=== PATIENT | female | born 1955 | race Caucasian/White ===

== ENCOUNTER 2024-01-31 05:31 | Day surgery (SDC) | payer BC ==
[2024-01-23 13:57] LABS: BASOPHILS % (AUTO) 0.5 % (0-1); EOSINOPHILS # (AUTO) 0.5 X10'3 (0-0.9); LYMPHOCYTES # (AUTO) 2.2 X10'3 (1.1-4.8); LYMPHOCYTES % (AUTO) 31.1 % (21-51); MEAN CORPUSCULAR HEMOGLOBIN 31.6 PG (27.0-31.0); MEAN CORPUSCULAR HGB CONC 33.1 g/dL (33.0-36.5); MEAN CORPUSCULAR VOLUME 95.3 FL (78-98); MEAN PLATELET VOLUME 9.9 FL (7.4-10.4); MONOCYTES # (AUTO) 0.4 X10'3 (0-0.9); MONOCYTES % (AUTO) 6.3 % (2-12); NEUTROPHILS # (AUTO) 3.9 X10'3 (1.8-7.7); NEUTROPHILS % (AUTO) 55.1 % (42-75); PRE OP HEMATOCRIT 43.9 % (35.0-45.0); PRE OP HEMOGLOBIN 14.5 g/dL (12.0-16.0); PRE OP PLATELET COUNT 206 X10'3 (140-440); RED CELL DISTRIBUTION WIDTH 14.4 % (11.5-14.5)
[2024-01-23 14:13] LABS: ALBUMIN 4.3 G/DL (3.4-5.0); ALBUMIN/GLOBULIN RATIO 1.2 (1.1-1.5); ALKALINE PHOSPHATASE 86 IU/L (46-116); BLOOD UREA NITROGEN 6 MG/DL (7-18); BUN/CREATININE RATIO 8.3 (10.0-20.0); CALCIUM 9.3 MG/DL (8.5-10.1); CHLORIDE 108 MMOL/L (99-107); CREATININE 0.72 MG/DL (0.40-0.90); PRE OP ALT 25 U/L (30-65); PRE OP ANION GAP 4 (8-16); PRE OP AST 18 U/L (10-37); PRE OP BILIRUB, TOTAL 0.6 MG/DL (0.0-1.0); PRE OP GLUCOSE 99 MG/DL (70-104); PRE OP SODIUM 140 MMOL/L (135-145); TOTAL PROTEIN 7.9 G/DL (6.4-8.2); eGFR 81 ML/MIN
[~2024-01-31] VITALS: Ht 160 cm; Wt 87.7 kg
[2024-01-31] VITALS (8 sets, daily range): BP systolic 117–144; BP diastolic 61–80; PULSE 68–82; RESP 10–26; TEMP 97.9; O2SAT 94–99
[~2024-01-31 05:31] MED LIST: ROSU20TA73 PO
[2024-01-31] MEDS: famotidine 20mg tablet PO ONE (05:55)
[2024-01-31] MEDS: ringers solution, lacted 1,000 ML IV SCH (05:57)
[2024-01-31] MEDS: cefazolin 2gm/D5W 100mL 100 ML IV ONE (05:58)
[2024-01-31] MEDS ORDERED: BUPIVAcaine 2.5mg/ml inj 50ml vial (contains preservative) ONE (07:06)
[2024-01-31] MEDS ORDERED: propofol inj 20 ML IV ONE (07:17)
[2024-01-31] MEDS ORDERED: fentaNYL/PF 50MCG/1 ML 2ML syringe ONE (07:18)
[2024-01-31] MEDS ORDERED: LIDOcaine 2% (20mg/ml) 5ml vial ONE (07:19)
[2024-01-31] MEDS ORDERED: dexamethasone sod phosphate 4mg/ml inj. ONE (07:29)
[2024-01-31] MEDS ORDERED: ondansetron/PF 4mg/2ml inj ONE (07:29)
[2024-01-31] MEDS ORDERED: desflurane 240ml liquid inh. IH ONE (07:30)
[2024-01-31] MEDS ORDERED: meperidine/PF 25mg/ml syringe ONE (08:06)
[2024-01-31] MEDS: BUPIVAcaine 0.25% w/Epi /PF 30ml vial ONE (09:13)
[2024-01-31] MEDS: LIDOcaine 1% 30ml preserv. free vial ONE (09:14)
== END 2024-01-31 09:20 | disposition home or self-care (01) ==
LOC: PAS 05:31
PROVIDERS: ATTEND Surgery
DX: S21.002A Unspecified open wound of left breast, initial encounter (principal); R92.8 Other abnormal and inconclusive findings on diagnostic imaging of breast; N60.12 Diffuse cystic mastopathy of left breast; N60.11 Diffuse cystic mastopathy of right breast; E78.5 Hyperlipidemia, unspecified; J43.9 Emphysema, unspecified; Z87.891 Personal history of nicotine dependence; Z79.899 Other long term (current) drug therapy; Z98.890 Other specified postprocedural states; X58.XXXA Exposure to other specified factors, initial encounter; Y93.89 Activity, other specified; Y92.89 Other specified places as the place of occurrence of the external cause; Y99.8 Other external cause status
CPT/HCPCS: 19120; 36415; 80053; 82948; 85025; 93005; J0690; J1100; J2175; J2405; J2704; J3010; J3490; J7030; J7120; Z7506; Z7512; 88305; A4215; A4618; A6449; A7000; S0020

== ENCOUNTER 2025-02-01 15:44 | Emergency (ER) | payer BC ==
[~2025-02-01] VITALS: Ht 157.5 cm; Wt 85.0 kg
[~2025-02-01 15:44] MED LIST changes: -ROSU20TA73 PO; +ROSU20TA98 PO
--- NOTE | 2025-02-01 16:26 | RADIOLOGY REPORT ---
CLINICAL INDICATION: A branch fell on arm, laceration to arm just above the elbow and forearm. TECHNIQUE: 2 views right forearm DI FOREARM,INCL.ONE JOINT Comparison: None FINDINGS/IMPRESSION: : There is no evidence of acute fracture or dislocation. Soft tissues are unremarkable.
[2025-02-01] MEDS ORDERED: LIDOcaine 1% W/epiNEPHrine 1:200,000 10ml vial IJ STA (16:33)
[2025-02-01] MEDS ORDERED: LIDOcaine 1% W/epiNEPHrine 1:100,000 20ml vial IJ STA (16:37)
[2025-02-01] MEDS: LIDOcaine 1% 30ml preserv. free vial IJ STA (16:56)
--- NOTE | 2025-02-01 18:21 | RADIOLOGY REPORT ---
CLINICAL INDICATION: tree fell on arm and hand RIGHT TECHNIQUE: 3 radiographic views of the right hand were obtained. Comparison: DI FOREARM,INCL.ONE JOINT on DOS: 02/01/25 FINDINGS/IMPRESSION: There is no evidence of acute fracture or dislocation. Mild degenerative changes of the hand. The alignment is anatomical. There is no radiopaque foreign body. Skin defect over the dorsum of the metacarpals. Correlate for P ossible wound. Mild soft tissue edema of the proximal dorsal metacarpal/wrist.
[2025-02-01] MEDS ORDERED: CEPH-585 PO (18:37)
--- NOTE | 2025-02-01 18:37 | Physician Documentation ---
History of Present Illness ~ Chief Complaint: Laceration Stated Complaint: ARM LACERATION Time Seen by MD: 16:01 HPI Patient is a 69-year-old female that presents to the emergency department for evaluation of injuries and laceration sustained today after a tree branch fell o nto her arm while she was sitting in her yd. Patient reports she is able to move fingers her arm no reduced range of motion she was not hit in the head by the tree branch just in the biceps and forearm into the dorsal aspect of her right hand. Patient denies any other complaints at this time. Tetanus Within 5 Years: No (needs updated shot) Medication Reconciliation Allergies: Coded Allergies: No Known Allergies (Unverified , 02/01/25) Scheduled Rosuvastatin Calcium (Rosuvastatin Calcium), 1 TAB PO HS, (Reported) Review of Systems ROS As stated above in the HPI, otherwise all systems are reviewed and negative. Physical Exam Vital Signs: Temperature: 97.6, Source: Temporal, Heart Rate: 73, Respiratory Rate: 18, BP: 147/70, Pulse Oximetry: 97, Weight: 84.950 Physical Exam VITALS: Reviewed and as above. GENERAL: Alert, no apparent distress. HEENT: Normocephalic, atraumatic, PERRL, EOMI, dry mucosa, no erythema RESPIRATORY: Lungs clear, normal breath sounds, no respiratory distress. CHEST: No accessory muscle use, no retractions CV: Regular rate, rhythm, no edema, no murmur, No: JVD GI: Soft, non-tender, bowels sounds present, no rebound, guarding, or rigidity BACK: No CVA tenderness, or swelling MUSCULOSKELETAL No deformities, edema to the right arm forearm and hand, areas of abrasion to the upper arm forearm and hand, laceration to the dorsal aspect of the right hand SKIN: Warm and dry, no rash NEURO: Oriented x4, No motor or sensory deficit PSYCH: Normal mood and affect, no agitation Progress Results/Orders Results/Orders Orders - RACHELL RAYMOND PAIN MANAGEMENT SPECIALIST Forearm,Incl.One Joint (02/01/25 16:11) Hand, Complete (3vw Min) (02/01/25 18:04) Completed Orders - RACHELL RAYMOND PAIN MANAGEMENT SPECIALIST Forearm,Incl.One Joint (02/01/25 16:11) Lidocaine 1% 30ml Vial (Xylocaine 1% Via (02/01/25 16:47) Hand, Complete (3vw Min) (02/01/25 18:04) Vital Signs 02/01/25 15:49 Temp 97.6 Pulse 73 Resp 18 B/P (MAP) 147/70 Pulse Ox 97 Medical Decision Making Findings Wound inspected under direct bright light with good visualization. Area with linear laceration across soft tissue through adipose without exposure of muscle belly or tendon. No overt foreign body. Area hemostatic. Neurovascular exam congruent with above. Area extensively irrigated with sterile normal saline under pressure. Laceration repaired in simple fashion as below (please see procedure note for further details). Patient tolerated procedure well and neurovascular exam intact and unchanged post repair with intact distal pulses and cap refill_. Cautious return precautions discussed w/ full understanding. Wound care discussed. Prompt follow up with primary care physician discussed and return for suture removal in 10 days. Area numbed with lidocaine, extensively irrigate, 6 sutures placed without complication, dressings applied. Antibiotics prescribed. Patient will follow up with primary care provider for suture removal or sooner if any concern for infection. Patient will return to the emergency department there is any worsening or recurrent symptoms or any additional concerning symptoms that we discussed today increased pain increased redness drainage from the wound dehiscence and wound or any other concerning symptoms. Differential Dx:Considerations: Include: Abrasion, Avulsion, Contusion, Laceration, Fracture, Hematoma, Neurovascular injury, Retained foreign body, Other Departure Disposition: 01 HOME / SELF CARE / HOMELESS Impression: Primary Impression: Laceration Additional Impressions: Abrasion Edema Discharge Instructions: Laceration Care, Adult, [id number] Additional Instructions: Wound inspected under direct bright light with good visualization. Area with linear laceration across soft tissue through adipose without exposure of muscle belly or tendon. No overt foreign body. Area hemostatic. Neurovascular exam congruent with above. Area extensively irrigated with sterile normal saline under pressure. Laceration repaired in simple fashion as below (please see procedure note for further details). Patient tolerated procedure well and neurovascular exam intact and unchanged post repair with intact distal pulses and cap refill_. Cautious return precautions discussed w/ full understanding. Wound care discussed. Prompt follow up with primary care physician discussed and return for suture removal in 10 days. Area numbed with lidocaine, extensively irrigate, 6 sutures placed without complication, dressings applied. Antibiotics prescribed. Patient will follow up with primary care provider for suture removal or sooner if any concern for infection. Patient will return to the emergency department there is any worsening or recurrent symptoms or any additional concerning symptoms that we discussed today increased pain increased redness drainage from the wound dehiscence and wound or any other concerning symptoms. Referrals: NO PRIMARY CARE PROVIDER (PCP) Prescriptions Cephalexin*Monohydrate* (Keflex*) 500 Mg Capsule 1 CAP PO QID for 7 Days, #28 CAP Prov: RACHELL RAYMOND 02/01/25 Education Educated: Patient Educated regarding: diagnosis, treatment, need for follow up Signature Scribe Signature: AScribed for Rachell Raymondp by JOAO Benavides . 02/01/25 18:37 Attestation: Scribed for Rachell Raymond Slagger by JOAO Benavides . 02/01/25 18:38 RACHELL RAYMOND Feb 01, 2025 18:37
[2025-02-01 18:49] VITALS: BP 126/86; PULSE 74; RESP 16; TEMP 98.7; O2SAT 98
== END 2025-02-01 18:50 | disposition home or self-care (01) ==
LOC: ER 15:45
DX: S51.811A Laceration without foreign body of right forearm, initial encounter (principal); W20.8XXA Other cause of strike by thrown, projected or falling object, initial encounter; X58.XXXA Exposure to other specified factors, initial encounter; Y93.89 Activity, other specified; Y92.89 Other specified places as the place of occurrence of the external cause; Y99.8 Other external cause status
CPT/HCPCS: 12001; 73090; 73130; 99284; A6222; J7030; 12002; A6258; A6410; A6449